=== PATIENT | female | born 1985 | race Caucasian/White ===

== ENCOUNTER 2018-01-15 11:10 | Emergency (ER) | payer BC, OTHER, SELFPAY ==
[2018-01-15 12:16] LABS: Appearance,Urine Clear (Clear); Bilirubin,Urine Negative (Negative); Blood,Urine Small (Negative); Color,Urine Yellow; Glucose,Urine (UA) Negative (Negative); Ketones,Urine Negative (Negative); Leukocyte Esterase,Urine Trace (Negative); Mucus,Urine Moderate /hpf; Nitrite,Urine Negative (Negative); PH, Urine 6.5 (5.0-8.0); Protein,Urine Negative (Negative); RBC,Urine 5 /hpf (0-5); Specific Gravity,Urine 1.017 (1.001-1.035); Squamous Epithelial Cell,Urine 3 /hpf (0-4); Urobilinogen,Urine <2.0 mg/dL (<2.0); WBC,Urine <1 /hpf (0-5)
--- NOTE | 2018-01-15 12:37 | XR ---
EXAMINATION TYPE: XR KUB , ONE VIEW DATE OF EXAM ORDERED: 01/15/2018 HISTORY: Pain. COMPARISON: None. FINDINGS: The lung bases are clear. Buttons project over the pelvis bilaterally. Within the abdomen, the abdominal gas pattern is normal. There is no evidence of obstruction or free air. No unusual calcifications are seen. IMPRESSION: NO ACUTE INTRA-ABDOMINAL ABNORMALITY.
--- NOTE | 2018-01-15 12:48 | ED ---
General Adult HPI - General Chief complaint: Abdominal Pain Stated complaint: ABDOMINAL PAIN Time Seen by Provider: 01/15/18 11:37 Source: patient, RN notes reviewed, old records reviewed Mode of arrival: wheelchair Limitations: no limitations - History of Present Illness Initial comments: 32-year-old female presents for evaluation of pelvic pain and vaginal pain after intercourse. Patient states that pain is severe, sudden in onset. She did have some worsening pain on the left side of her lower abdomen and pelvis. Patient states she had a bowel movement shortly after intercourse with no improvement in her symptoms. No preceding symptoms prior to intercourse. She normally is pain-free. No reported vaginal trauma. No preceding dysuria or hematuria. Patient is otherwise healthy . Last menstrual cycle was approximately 3 weeks ago. - Related Data Home Medications Medication Instructions Recorded Confirmed No Known Home Medications 01/15/18 01/15/18 Allergies Allergy/AdvReac Type Severity Reaction Status Date / Time No Known Allergies Allergy Verified 01/15/18 11:14 Review of Systems ROS Statement: Those systems with pertinent positive or pertinent negative responses have been documented in the HPI. ROS Other: All systems not noted in ROS Statement are negative. Past Medical History Past Medical History: No Reported History History of Any Multi-Drug Resistant Organisms: None Reported Past Surgical History: No Surgical Hx Reported Past Anesthesia/Blood Transfusion Reactions: No Reported Reaction Past Psychological History: No Psychological Hx Reported Smoking Status: Current every day smoker Past Alcohol Use History: None Reported Past Drug Use History: None Reported - Past Family History Mother Family Medical History: No Reported History General Exam Limitations: no limitations General appearance: alert, in no apparent distress Head exam: Present: atraumatic, normocephalic Eye exam: Present: normal appearance, PERRL Neck exam: Present: normal inspection. Absent: tenderness, meningismus Respiratory exam: Present: normal lung sounds bilaterally. Absent: respiratory distress, wheezes Cardiovascular Exam: Present: regular rate, normal rhythm GI/Abdominal exam: Present: soft, tenderness (Left lower quadrant ). Absent: distended Rectal exam: Present: normal inspection External exam: Present: normal external exam. Absent: erythema, swelling Speculum exam: Present: normal speculum exam By manual exam: Present: cervical motion tenderness, adnexal tenderness (Left adnexal tenderness) Extremities exam: Present: normal inspection, full ROM Neurological exam: Present: alert, oriented X3, CN II-XII intact. Absent: motor sensory deficit Psychiatric exam: Present: normal affect, normal mood Skin exam: Present: warm, dry, intact. Absent: cyanosis, diaphoretic Course Vital Signs 01/15/18 11:15 Temperature 97.9 F Pulse Rate 70 Respiratory 18 Rate Blood Pressure 133/83 O2 Sat by Pulse 100 Oximetry Medical Decision Making - Medical Decision Making 32-year-old female with pelvic pain during intercourse. On exam patient has no external signs of trauma, there is some cervical motion tenderness as well as adnexal tenderness. For this reason ultrasound is obtained, which does show free fluid in the right adnexa which is consistent with her pain complaint. This likely represents recent ruptured hemorrhagic cyst. On reevaluation, patient is nearly pain-free, quite comfortable without any pain medications in the emergency department. She will take Motrin for pain and follow-up with her [employer]. - Lab Data Lab Results 01/15/18 01/15/18 Range/Units 11:50 11:50 Urine Color Yellow Urine Appearance Clear (Clear) Urine pH 6.5 (5.0-8.0) Ur Specific [place] 1.017 (1.001-1.035) Urine Protein Negative (Negative) Urine Glucose (UA) Negative (Negative) Urine Ketones Negative (Negative) Urine Blood Small H (Negative) Urine Nitrite Negative (Negative) Urine Bilirubin Negative (Negative) Urine Urobilinogen <2.0 (<2.0) mg/dL Ur Leukocyte Esterase Trace H (Negative) Urine RBC 5 (0-5) /hpf Urine WBC <1 (0-5) /hpf Ur Squamous Epith Cells 3 (0-4) /hpf Urine Mucus Moderate H (None) /hpf Urine HCG, Qual Not Detected (Not Detectd) Disposition Clinical Impression: Ruptured ovarian cyst Disposition: HOME SELF-CARE Condition: Fair Instructions: Ovarian Cyst (ED), Ruptured Ovarian Cyst (ED) Is patient prescribed a controlled substance at d/c from ED?: No Referrals: Janay Tian DO [Primary Care Provider] - 1-2 days Alireza Dubois MD [STAFF PHYSICIAN] - 1-2 days Time of Disposition: 14:42
--- NOTE | 2018-01-15 14:37 | US ---
EXAMINATION TYPE: US pelvic comp with doppler DATE OF EXAM: 01/15/2018 COMPARISON: NONE CLINICAL HISTORY: Abdominal and pelvic pain. TECHNIQUE: Transabdominal sonographic images of the pelvis were acquired. Date of LMP: 01/02/18 EXAM MEASUREMENTS: Uterus: 8.4 x 3.7 x 4.4 cm Endometrial Stripe: 0.8 cm Right Ovary: 2.8 x 1.4 x 2.0 cm Left Ovary: 3.3 x 2.7 x 2.7 cm 1. Uterus: Anteverted wnl 2. Endometrium: wnl 3. Right Ovary: wnl 4. Left Ovary: wnl Spectral, color and waveform doppler imaging shows good arterial and venous flow within the ovaries ; there is no evidence for ovarian torsion. 5. Bilateral Adnexa: ff in right adnexa, area measuring 3.8 x 2.0 x 1.5cm Scanned as far out as area of appendix. There appears to be ff adjacent to the appendix as well, tubu lar structure in RLQ measures wnl and is compressible with no increased vascularity. 6. Posterior cul-de-sac: ff in cul de sac IMPRESSION: Right lower quadrant and right adnexal free fluid, possibly related to a recently rupture d hemorrhagic cyst. No current evidence of ovarian torsion. Appendix is identified, within normal alanis its in size and compressible. No sonographic evidence of acute appendicitis.
[2018-01-15 14:57] VITALS: BP 132/82; PULSE 72; RESP 16; TEMP 98.2
== END 2018-01-15 14:56 | disposition home or self-care (01) ==
LOC: EC 11:10
DX: N83.201 Unspecified ovarian cyst, right side (principal); F17.200 Nicotine dependence, unspecified, uncomplicated
CPT/HCPCS: 74018; 76856; 81001; 81025; 93975; 93976; 99285